=== PATIENT | male | born 1950 | race Caucasian/White ===

== ENCOUNTER 2019-02-07 17:11 | Emergency (ER) | payer MEDICARE, MEDICAID ==
[~2019-02-07] VITALS: Ht 182.9 cm; Wt 72.7 kg
[2019-02-07 17:21] VITALS: BP 98/61
== END 2019-02-07 18:07 ==
LOC: ER 17:11
DX: Z02.89 Encounter for other administrative examinations (principal)
CPT/HCPCS: 99283